=== PATIENT | female | born 1985 | race Caucasian/White ===

== ENCOUNTER → 2016-08-21 | Outpatient (CLI) | payer OTHER ==
[~2016-08-21] MED LIST: EFFEXOR XR PO; NO MEDICATIONS
== END | disposition home or self-care (01) ==
LOC: CBAR 10:41
DX: Z01.812 Encounter for preprocedural laboratory examination (principal); E66.01 Morbid (severe) obesity due to excess calories
CPT/HCPCS: 36415; 84443; 86677; G0463

== ENCOUNTER → 2016-10-12 | Outpatient (CLI) | payer OTHER ==
--- NOTE | ~2016-10-12 | EKG ---
PATIENT: ZACKERY MCQUEEN UNIT #: [id number] Ventricular Rate: 63 BPM Atrial Rate: 63 BPM P-R Interval: 172 ms QRS Duration: 88 ms Q-T Interval: 406 ms QTC Calculation(Bezet): 415 ms P [place]: 26 degrees Calculated R [place]: 14 degrees Calculated T [place]: 21 degrees Diagnosis Line: Normal sinus rhythm with sinus arrhythmia Diagnosis Line: Normal ECG Diagnosis Line: No previous ECGs available Diagnosis Line: Confirmed by MICHELLE BRYANT MD ([id number]) on 10/14/2016 Diagnosis Line: 2:47:35 PM INTERPRETING MD: ANNETTE COTO
--- NOTE | ~2016-10-12 | CR97 ---
[facility] A Service of [facility] & [facility] RADIOLOGY TEXT RESULTS PATIENT: ZACKERY MCQUEEN LOCATION: [facility] : 84 UNIT #: [id number] AGE: [address]: Bill Ramsey III, MD SEX: F ORDER DR: [id number] [facility] [address] [place], [place] [address] [id number] O MR#: [id number] Acc #: [id number] NAME: ZACKERY MCQUEEN : 1985 SEX: F STUDY DATE/TIME: 10/12/2016 9:19 UNIT: [facility] ROOM: STUDY DESCRIPTION: CR Esophagram Attending Physician: Bill Ramsey III, M.D. Referring Physician: Bill Ramsey III, M.D. Ordering Physician: Bill Ramsey III, M.D. Primary Care Physician: Karen Ayers A.P.R.N. MEDICAL IMAGING REPORT This report is preliminary unless electronic signature is present EXAM Esophagram. HISTORY Presurgical evaluation for LAP-BAND surgery. The patient is asymptomatic. Evaluate for esophageal anomalies. TECHNIQUE The esophagus was examined with thin liquid barium. 17 overhead spot films were obtained with a fluoroscopy time of 0.3 minutes. FINDINGS The swallowing mechanism is normal. The esophagus shows no evidence of stricture, filling defect, or mucosal irregularity. No hiatal hernia is seen. IMPRESSION Normal. Dictated by... Gigi Flowers M.D. THIS IS AN ELECTRONICALLY VERIFIED REPORT Gigi Flowers M.D. at 10/12/2016 4:43 PM JAYMIEF/nola TD: 10/12/2016 15:01 JOB #: [id number] MEDICAL IMAGING REPORT Page 1 of 1 COPY
--- NOTE | ~2016-10-12 | CR63 ---
[facility] A Service of [facility] & [facility] RADIOLOGY TEXT RESULTS PATIENT: ZACKERY MCQUEEN LOCATION: [facility] : 84 UNIT #: [id number] AGE: [address]: Bill Ramsey III, MD SEX: F ORDER DR: [id number] [facility] [address] [facility] [place], [place] [address] [id number] O MR#: [id number] Acc #: [id number] NAME: ZACKERY MCQUEEN : 1985 SEX: F STUDY DATE/TIME: 10/12/2016 8:00 UNIT: [facility] ROOM: STUDY DESCRIPTION: CR Chest 2 View Attending Physician: Bill Ramsey III, M.D. Referring Physician: Bill Ramsey III, M.D. Ordering Physician: Bill Ramsey III, M.D. Primary Care Physician: Karen Ayers A.P.R.N. MEDICAL IMAGING REPORT This report is preliminary unless electronic signature is present EXAM Chest PA and lateral 3 views, 10/12/2016 HISTORY Morbid obesity, shortness of breath on exertion for 3 days, preop laparoscopic gastric banding. Smoking history for 15 years. FINDINGS PA and lateral examination of the chest upright shows a good expansion of the parenchyma with a normal distribution of the pulmonary vascularity. There is no indication of congestion, effusion, infiltrate, tumor, or nodular density. The pleural reflections and diaphragmatic contours are normal. The cardiac silhouette and mediastinal anatomy is within normal limits. IMPRESSION Normal chest. Dictated by... Panfilo Nunez M.D. THIS IS AN ELECTRONICALLY VERIFIED REPORT Panfilo Nunez M.D. at 10/12/2016 4:53 PM JOY/teresita TD: 10/12/2016 11:58 JOB #: [id number] MEDICAL IMAGING REPORT Page 1 of 1 COPY
[2016-10-12 09:25] LABS: HEMATOCRIT 42.4 % (35.0-45.0); HEMOGLOBIN 14.5 gm/dL (12.0-16.0); MEAN CELL VOLUME 84.4 FL (83-96); MEAN CORPUSCULAR HEMOGLOBIN 28.9 PG (28-34); MEAN CORPUSCULAR HGB CONC 34.3 g/dL (30-36); MEAN PLATELET VOLUME 8.2 FL (6.5-11.5); RED BLOOD COUNT 5.02 X10e (3.90-5.30); RED CELL DISTRIBUTION WIDTH 13.7 % (11.0-15.5); WHITE BLOOD COUNT 10.1 X10e3 (4.0-10.5)
[2016-10-12 10:12] LABS: ALBUMIN SERUM 3.4 g/dL (3.5-5.0); BILIRUBIN,TOTAL 0.4 mg/dL (0.2-2.0); BUN/CREATININE RATIO 13.33; CALCIUM SERUM 9.3 mg/dL (8.4-10.2); CREATININE SERUM 0.6 mg/dL (0.6-1.4); GLOM FILT RATE Estimated 120.6 mL/min (>60); POTASSIUM 4.4 mmol/L (3.5-5.1); PROTEIN TOTAL SERUM 6.8 g/dL (6.0-8.3)
== END | disposition home or self-care (01) ==
LOC: CRAD 07:43 → CAMB 08:30
PROVIDERS: Surgery
DX: Z01.818 Encounter for other preprocedural examination (principal); E66.01 Morbid (severe) obesity due to excess calories
CPT/HCPCS: 36415; 71020; 74220; 80053; 80061; 84443; 85027; 93005

== ENCOUNTER → 2016-10-24 | Day surgery (SDC) | payer OTHER ==
--- NOTE | ~2016-10-24 | CR7 ---
[facility] A Service of [facility] & [facility] RADIOLOGY TEXT RESULTS PATIENT: ZACKERY MCQUEEN LOCATION: [facility] : 84 UNIT #: [id number] AGE: [address]: Bill Ramsey III, MD SEX: F ORDER DR: [id number] [facility] [address] [place], [place] [address] [id number] O MR#: [id number] Acc #: [id number] NAME: ZACKERY MCQUEEN : 1985 SEX: F STUDY DATE/TIME: 10/24/2016 8:54 UNIT: [facility] ROOM: STUDY DESCRIPTION: CR Abdomen Single AP View Attending Physician: Bill Ramsey III, M.D. Ordering Physician: Bill Ramsey III, M.D. Primary Care Physician: Karen Ayers A.P.R.N. MEDICAL IMAGING REPORT This report is preliminary unless electronic signature is present EXAM Abdomen 10/24 INDICATIONS Gastric band placement today. Abdominal pain. Morbid obesity. FINDINGS Supine view of the abdomen was obtained. Gastric band is present with a phi angle of 57 degrees. Port is in the left lower quadrant. Normal bowel gas pattern. IMPRESSION Gastric band in place with phi angle of 57 degrees. Dictated by... Gigi oRberson Jr., M.D. THIS IS AN ELECTRONICALLY VERIFIED REPORT Gigi Roberson Jr., M.D. at 10/24/2016 5:09 PM EARNEST/iglesia TD: 10/24/2016 11:40 JOB #: [id number] MEDICAL IMAGING REPORT Page 1 of 1 COPY
--- NOTE | ~2016-10-24 | OR ---
Unit #: [id number] #: [id number] Patient: ZACKERY MCQUEEN [id number] [address] [facility]. [place], [place] [address] [id number] O MR#: [id number] NAME: ZACKERY MCQUEEN ROOM: Date of Procedure: 10/24/2016 Admission Date: 10/24/2016 Surgeon: Bill Ramsey III, M.D. : 1985 Attending Physician: Bill Ramsey III, M.D. Primary Care Physician: Karen Ayers A.P.R.N. PROCEDURE OPERATIVE NOTE PREOPERATIVE DIAGNOSIS Chronic morbid obesity. POSTOPERATIVE DIAGNOSIS Chronic morbid obesity. SECONDARY DIAGNOSIS Anterior paraesophageal hernia. PROCEDURE PERFORMED Laparoscopic-adjusted gastric banding (AP standard with regular port) and laparoscopic paraesophageal hernia repair. SURGEON Dr. Bill Ramsey. BOILER ROOM HELPER Dr. Tristin Palomo. SPECIMENS None. COMPLICATIONS None apparent. ESTIMATED BLOOD LOSS Minimal. ANESTHESIA General endotracheal tube anesthesia. INDICATION FOR PROCEDURE This is a 31-year-old lady who has chronic morbid obesity with a BMI of 54 with no major associated co-morbidities. She has been through the bariatric program at [facility] and understands the risks and benefits of the procedure. DESCRIPTION OF PROCEDURE After consent was obtained, including the risks and benefits of slippage, erosion, port dysfunction, and possible failure of weight loss due to noncompliance, the patient was taken to the operating room and placed in the supine position. General anesthetic was administered and the abdomen was prepped and draped in standard surgical fashion. Unit #: [id number] #: [id number] Patient: ZACKERY MCQUEEN I began by making a 2 cm incision just above and to the left of the umbilicus. I used a Visiport to enter the peritoneal cavity without any difficulty. C02 pneumoperitoneum was then established. Next, I placed a 5 mm port in the right upper quadrant, a 5 mm Zulema liver retractor in the subxiphoid region to provide exposure of the gastroesophageal junction. Next, a 10 mm port was placed in the left upper quadrant and a 5 mm port was placed in the left lateral subcostal region. I began by performing an examination of the GE junction to evaluate for a hiatal hernia. We then scored the peritoneal attachments overlying the angle of His. I then opened up the clear space in the gastrohepatic ligament, and then using 2 blunt graspers, I identified the small fat pad crossing over the right crura. I swept the fat anterior to the crura off the crura and using the pars flaccida, I created a retrogastric tunnel where the blunt grasper exited at the angle of His. Once I had made this tunnel safely, I then inserted an Allergan AP band into the abdominal cavity. This adjustable gastric band was then place around the upper part of the stomach and fastened and buckled anteriorly. We then tacked the lateral fundus over the band to the proximal pouch with 2 interrupted 0 Ethibond sutures. I then used a third stitch to imbricate the excess anterior stomach by going from the lesser curvature up towards where the last stitch was placed. We then had excellent hemostasis. I removed the Zulema liver retractor. We then removed the port tubing through the initial port incision. The rest of the ports were removed, and the pneumoperitoneum was released. I then left a small tail on the tubing. We then attached the port to the excess band tubing. We placed a piece of Prolene mesh along the back side of the port and used a Prolene stitch to anchor this mesh in place. We then trimmed the excess mesh so that just a small footprint of mesh was in place behind the port. I then inserted the tubing back into the abdominal cavity, and we placed the port into a small pocket that was made just inferior to where our initial port incision was made. The mesh was in direct contact with the fascia, and this will scar in place to hold the port in place. We then injected all the port sites with 0.25% plain Marcaine, and I reapproximated the skin edges with interrupted 4-0 Vicryl subcuticular sutures. Steri-strips were then applied. The patient tolerated the procedure without any problems and returned to the recovery room in stable condition. ADDENDUM After exposure of the GE junction, the patient was noted to have a small to medium sized anterior paraesophageal hernia. I scored the phrenoesophageal ligament, reduced the hernia defect, and after identifying both the right and left crura, I reapproximated the defect with an interrupted 0 Ethibond [id number] suture. I then proceeded with the case as listed above. Dictated by... Bill Ramsey III, M.D. VCL/ferny TD: 10/25/2016 19:04 JOB #: [id number] Unit #: [id number] #: [id number] Patient: ZACKERY MCQUEEN EBENEZER PROCEDURE OPERATIVE NOTE Page 1 of 1 X Bill Ramsey III, MD PROCEDURE OPERATIVE NOTE
--- NOTE | ~2016-10-24 | OR ---
Unit #: [id number] #: [id number] Patient: ZACKERY MCQUEEN [id number] [facility] [address] [place], [place] [address] [id number] O MR#: [id number] NAME: ZACKERY MCQUEEN ROOM: Date of Procedure: 10/24/2016 Admission Date: 10/24/2016 Surgeon: Bill Ramsey III, M.D. : 1985 Attending Physician: Bill Ramsey III, M.D. Primary Care Physician: Karen Ayers A.P.R.N. OPERATIVE REPORT PREOPERATIVE DIAGNOSIS Chronic morbid obesity. POSTOPERATIVE DIAGNOSIS Chronic morbid obesity. SECONDARY DIAGNOSIS Anterior paraesophageal hernia. PROCEDURES PERFORMED Laparoscopic adjustable gastric banding (AP standard with regular port) and laparoscopic paraesophageal hernia repair. P[employer] OPERATIONS MANAGER Dr. Tristin Palomo. SPECIMENS None. COMPLICATIONS None apparent. ESTIMATED BLOOD LOSS Minimal. ANESTHESIA General endotracheal tube anesthesia. INDICATIONS FOR PROCEDURE This is a 31-year-old lady, who has chronic morbid obesity with a BMI of 54 with no major associated comorbidities. She has been through the bariatric program at [facility] and understands risks and benefits of the procedure. DESCRIPTION OF PROCEDURE After consent was obtained, including the risks and benefits of slippage, erosion, port dysfunction, and possible failure of weight loss due to noncompliance, the patient was taken to the operating room and placed in the supine position. General anesthetic was administered and the abdomen was prepped and draped in standard surgical fashion. I began by making a 2 cm incision just above and to the left of the Unit #: [id number] #: [id number] Patient: ZACKERY MCQUEEN umbilicus. I used a Visiport to enter the peritoneal cavity without any difficulty. C02 pneumoperitoneum was then established. Next, I placed a 5 mm port in the right upper quadrant, a 5 mm Zulema liver retractor in the subxiphoid region to provide exposure of the gastroesophageal junction. Next, a 10 mm port was placed in the left upper quadrant and a 5 mm port was placed in the left lateral subcostal region. I began by performing an examination of the GE junction to evaluate for a hiatal hernia. We then scored the peritoneal attachments overlying the angle of His. I then opened up the clear space in the gastrohepatic ligament, and then using 2 blunt graspers, I identified the small fat pad crossing over the right crura. I swept the fat anterior to the crura off the crura and using the pars flaccida, I created a retrogastric tunnel where the blunt grasper exited at the angle of His. Once I had made this tunnel safely, I then inserted an Allergan AP band into the abdominal cavity. This adjustable gastric band was then place around the upper part of the stomach and fastened and buckled anteriorly. We then tacked the lateral fundus over the band to the proximal pouch with 2 interrupted 0 Ethibond sutures. I then used a third stitch to imbricate the excess anterior stomach by going from the lesser curvature up towards where the last stitch was placed. We then had excellent hemostasis. I removed the Zulema liver retractor. We then removed the port tubing through the initial port incision. The rest of the ports were removed, and the pneumoperitoneum was released. I then left a small tail on the tubing. We then attached the port to the excess band tubing. We placed a piece of Prolene mesh along the back side of the port and used a Prolene stitch to anchor this mesh in place. We then trimmed the excess mesh so that just a small footprint of mesh was in place behind the port. I then inserted the tubing back into the abdominal cavity, and we placed the port into a small pocket that was made just inferior to where our initial port incision was made. The mesh was in direct contact with the fascia, and this will scar in place to hold the port in place. We then injected all the port sites with 0.25% plain Marcaine, and I reapproximated the skin edges with interrupted 4-0 Vicryl subcuticular sutures. Steri-strips were then applied. The patient tolerated the procedure without any problems and returned to the recovery room in stable condition. ADDENDUM After exposure of the GE junction, the patient was noted to have a small to medium sized anterior paraesophageal hernia. I scored the phrenoesophageal ligament, reduced the hernia defect and after identifying both the right and left crura, I reapproximated the defect with an interrupted 0 Ethibond [id number] suture. I then proceeded with the case as listed above. Dictated by... Bill Ramsey III, M.D. VCL/ashish TD: 10/25/2016 10:35 JOB #: [id number] CC: Karen Ayers A.P.R.N. Unit #: [id number] #: [id number] Patient: ZACKERY MCQUEEN EBENEZER OPERATIVE REPORT Page 1 of 1 X Bill Ramsey III, MD X PROCEDURE OPERATIVE NOTE
== END | disposition home or self-care (01) ==
LOC: CSUR 05:55
DX: E66.01 Morbid (severe) obesity due to excess calories (principal); Z68.43 Body mass index [BMI] 50.0-59.9, adult; K44.9 Diaphragmatic hernia without obstruction or gangrene; K21.9 Gastro-esophageal reflux disease without esophagitis; J30.9 Allergic rhinitis, unspecified; M54.9 Dorsalgia, unspecified; Z79.899 Other long term (current) drug therapy; Z87.891 Personal history of nicotine dependence; Z82.49 Family history of ischemic heart disease and other diseases of the circulatory system; Z82.5 Family history of asthma and other chronic lower respiratory diseases; Z80.0 Family history of malignant neoplasm of digestive organs
CPT/HCPCS: 74000; 84703; C1781; J0131; J0330; J0690; J1100; J1650; J1885; J2250; J2405; J3010; L8699